=== PATIENT | female | born 1965 | race Hispanic/Latino ===

== ENCOUNTER 2019-08-27 21:56 | Emergency (ER) | payer OTHER ==
--- NOTE | 2019-08-27 22:35 | Emergency Department Report ---
ED General Adult HPI - General Chief complaint: Weakness Stated complaint: GENERAL WEAKNESS Time Seen by Provider: 08/27/19 22:20 Source: patient, family, EMS, RN notes reviewed ( EMS documentation not available at time of chart dictation ) Mode of arrival: Stretcher Limitations: Altered Mental Status, Physical Limitation - History of Present Illness Initial comments: This is a 54-year-old female. This patient is not known to this provider previously. Majority of history obtained by speaking to [facility] physician, Dr. Cheli Hurst. 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 Reportedly, patient was recently found to have a left lower lobe lung nodule, 0.7 x 0.6 cm on PET scan 07/20/2019. Patient recently evaluated at [facility], and had a fluoroscopically guided wedge resection via bronchoscopy in the left hemithorax. Patient also had left-sided chest tubes placed, and was known to have an impressive left- sided subcutaneous emphysema. She was discharged. Today, she presents with her family for weakness and altered mental status. Her last known well time was approximately 10:00 PM yesterday. Family reports that at the patient's baseline, she is able to ambulate, and maintain most of her activities of daily living. There is no trauma that they're aware of, no vomiting, no fevers or chills. In the emergency room, the patient is awake, but altered, follows commands, and indicates that she is not having any physical pain. -: hour(s) Consistency: other Improves with: other Worsens with: other Associated Symptoms: other - Related Data Allergies Allergy/AdvReac Type Severity Reaction Status Date / Time No Known Allergies Allergy Unverified 08/27/19 22:42 ED Review of Systems ROS: Stated complaint: GENERAL WEAKNESS Other details as noted in HPI Comment: Unobtainable due to pts medical conditions (ros from family) Constitutional: malaise Neurological: weakness, confusion ED Physical Exam - General Limitations: Altered Mental Status, Physical Limitation General appearance: other (patient initially listless but arousable.) - Head Head exam: Present: atraumatic, normocephalic - Eye Eye exam: Present: normal appearance, PERRL - ENT ENT exam: Present: mucous membranes moist, normal external ear exam, other (evidence of mandibular reconstruction noted. There is a tracheostomy stoma noted, with so purulent mucus noted) - Neck Neck exam: Present: normal inspection, full ROM. Absent: tenderness, meningismus - Respiratory Respiratory exam: Present: respiratory distress, chest wall tenderness, decreased breath sounds, other (left-sided hemithorax crepitus is noted. Left-sided chest wall ecchymosis noted. Dockworker by nurse Gillian Celaya) - Cardiovascular Cardiovascular Exam: Present: normal rhythm, tachycardia, normal heart sounds. Absent: systolic murmur, diastolic murmur, rubs, gallop - GI/Abdominal GI/Abdominal exam: Present: soft, other (there is a feeding tube noted.). Absent: distended, tenderness, guarding, rebound, rigid, pulsatile mass - Extremities Exam Extremities exam: Present: normal inspection, full ROM, other (2+ pulses noted i n the bilateral upper, lower extremities. There is no long bone tenderness. Musculoskeletal compartments are soft. The pelvis is stable.). Absent: pedal edema, joint swelling, calf tenderness - Back Exam Back exam: Present: normal inspection. Absent: tenderness, CVA tenderness (R), CVA tenderness (L), paraspinal tenderness, vertebral tenderness - Neurological Exam Neurological exam: Present: altered (the patient is awake and follows commands. Detailed neurologic examination not completed secondary to altered mental status there is no facial droop. She is moving 4 extremities spontaneously.) - Skin Skin exam: Present: warm, dry, intact, normal color. Absent: rash ED Course Vital Signs 08/27/19 08/27/19 08/27/19 22:17 22:30 22:45 Temperature Pulse Rate 103 H 108 H 100 H Pulse Rate [ Bilateral Throughout] Respiratory 19 21 17 Rate Respiratory Rate [Bilateral Throughout] Blood Pressure 126/58 128/60 O2 Sat by Pulse 83 L 91 Oximetry 08/27/19 08/27/19 08/27/19 23:00 23:02 23:20 Temperature 99.5 F Pulse Rate 98 H 96 H Pulse Rate [ Bilateral Throughout] Respiratory 13 13 Rate Respiratory Rate [Bilateral Throughout] Blood Pressure 128/74 153/74 O2 Sat by Pulse 96 95 Oximetry 08/27/19 08/27/1919 23:30 23:45 23:55 Temperature Pulse Rate 91 H 92 H Pulse Rate [ 96 H Bilateral Throughout] Respiratory 11 L 11 L Rate Respiratory 13 Rate [Bilateral Throughout] Blood Pressure 155/75 135/79 O2 Sat by Pulse 95 94 Oximetry 08/28/19 08/28/19 08/28/19 00:00 00:15 00:30 Temperature Pulse Rate 82 97 H Pulse Rate [ Bilateral Throughout] Respiratory 9 L 15 Rate Respiratory Rate [Bilateral Throughout] Blood Pressure 145/78 155/84 155/84 O2 Sat by Pulse 97 82 L Oximetry 08/28/19 08/28/19 00:45 01:00 Temperature Pulse Rate 102 H 100 H Pulse Rate [ Bilateral Throughout] Respiratory 11 L 13 Rate Respiratory Rate [Bilateral Throughout] Blood Pressure 134/60 155/84 O2 Sat by Pulse 96 87 Oximetry - Reevaluation(s) Reevaluation #1: 08/27/19 23:35 Differential diagnosis, including not limited to: Encephalopathy, hypoxemic versus infectious versus toxic versus metabolic, chronic emphysema, pneumonia, urinary tract infection Assessment and plan: 54-year-old female with complaint of general weakness and altered mental status as per family. Initially, she is saturating at 65% on nasal cannula. Arterial blood gas is obtained while patient is on a nonrebreather, it shows a respiratory acidosis, hypoxemia, with some metabolic compensation. Patient's tracheal stoma was aggressively suctioned by res piratory therapy, approximately 150 mL of cloudy purulent material were suctioned. Noncontrast CT scan of the brain is negative for acute disease. X- ray the chest shows reported chronic findings, we will cover the patient empirically with Zosyn, and arrange for transfer, as we do not have ENT, hem atology oncology, cardiothoracic surgery available for consultation. In addition, given that patient is currently in the [facility] network, she'll need to be transferred back to her original institution for continuity of care, given her medical complexity. Currently, the patient is saturating at 93% on nonrebreather, appears to be more awake, moving 4 extremities, and does not require tracheal tube placement emergently. Discussed plan of care with family, they are amenable to transfer. Reevaluation #2: 08/27/19 23:48 CT scan brain negative for acute disease. Laboratory studies demonstrate renal insufficiency, hyperkalemia, azotemia, uremia. Hyperkalemia cocktail ordered, nursing team is instructed to administer Kayexalate through feeding tube. Patient continues to remain awake and alert, in no acute distress at this time, she is moving 4 extremities. We will discuss with [facility] to arrange transfer. We will update the patient's family. Reevaluation #3: 08/28/19 00:34 d/w Dr Sunshine, ct surgeon at [facility] who will accept the patient but no beds are available in the icu he will talk to the ER doctors in [facility] [place] to attempt to arrange er to er transfer and ct surgery consultation Reevaluation #4: 08/28/19 01:17 Dr Green at [facility] accepted as and er to er transfer ED Medical Decision Making - Lab Data Result diagrams: 08/27/19 23:00 08/27/19 23:00 Vital Signs 08/27/19 08/27/19 08/27/19 22:17 22:30 22:45 Temperature Pulse Rate 103 H 108 H 100 H Respiratory 19 21 17 Rate Blood Pressure 126/58 128/60 O2 Sat by Pulse 83 L 91 Oximetry 08/27/19 08/27/19 23:00 23:02 Temperature 99.5 F Pulse Rate 98 H Respiratory 13 Rate Blood Pressure 128/74 O2 Sat by Pulse 96 Oximetry Lab Results 08/27/19 08/27/19 08/27/19 Range/Units 22:49 22:54 23:00 WBC 7.1 (4.5-11.0) K/mm3 RBC 3.02 L (3.65-5.03) M/mm3 Hgb 8.4 L (10.1-14.3) gm/dl Hct 26.5 L (30.3-42.9) % MCV 88 (79-97) fl MCH 28 (28-32) pg MCHC 32 (30-34) % RDW 15.6 H (13.2-15.2) % Plt Count 285 (140-440) K/mm3 Lymph % (Auto) 3.9 L (13.4-35.0) % Perry % (Auto) 7.1 (0.0-7.3) % Eos % (Auto) 0.8 (0.0-4.3) % Baso % (Auto) 0.1 (0.0-1.8) % Lymph # 0.3 L (1.2-5.4) K/mm3 Perry # 0.5 (0.0-0.8) K/mm3 Eos # 0.1 (0.0-0.4) K/mm3 Baso # 0.0 (0.0-0.1) K/mm3 Seg Neutrophils % 88.1 H (40.0-70.0) % Seg Neutrophils # 6.3 (1.8-7.7) K/mm3 POC ABG pH 7.237 L (7.35-7.45) POC ABG pO2 77 L (80-105) POC ABG HCO3 30.5 (22-26 mml/L) POC ABG Total CO2 33 (23-27mmol/L) POC ABG O2 Sat 92 POC ABG Base Excess 3 ((-2) - (+3)mmol/L) FiO2 100 % POC Glucose 231 H (70-105) - EKG Data -: EKG Interpreted by Al EKG shows normal: sinus rhythm Rate: normal - EKG Data When compared to previous EKG there are: previous EKG unavailable 08/27/19 23:37 There is no prior EKG available for comparison. EKG shows a rate of 95 bpm, normal axis, QTC is 430 ms, there is motion artifact, there is nonspecific ST abnormality, low voltage noted in the lateral leads, the EKG is abnormal, the EKG is not consistent with ST elevation myocardial infarction. - Radiology Data Radiology results: report reviewed, image reviewed Print Report Referring Physician: EMILY MENDEZ Patient Name: NORA ERWIN Date of : 1965 Sex: Female Report Date: 2019-08-27 Report Status: Finalized Findings [facility] [address] [place] [address] XRay Report Signed Patient: NORA ERWIN MR#: [id number] : 1965 Acct:[id number] Age/Sex: 54 / F ADM Date: 08/27/19 Loc: ED Attending Dr: Ordering Physician: EMILY MENDEZ MD Date of Service: 08/27/19 Procedure(s): XR chest 1V ap Accession Number(s): [id number] cc: EMILY MENDEZ MD Fluoro Time In Minutes: CHEST 1 VIEW INDICATION: hypoxia ams s/p procedure. COMPARISON: None. FINDINGS: Support devices: None. Heart: Within normal limits. Lungs/Pleura: Patchy consolidation/volume loss at the bases. Extensive subcutaneous air at the left chest and abdomen. Suspected intra-abdominal air. Additional findings: None. IMPRESSION: 1. Volume loss/patchy consolidation at the bases. It is uncertain if this represents atelectasis or aspiration. 2. Extensive subcutaneous air and suspected intraperitoneal air likely post procedure. Signer Name: Ezekiel Garcia MD Signed: 08/27/2019 11:13 PM Workstation Name: [id number] Transcribed By: ES Dictated By: Ezekiel Garcia MD Electronically Authenticated By: Ezekiel Garcia MD Signed Date/Time: 08/27/192312 DD/ 11 Critical Care Time: Yes Critical care time in (mins) excluding proc time.: 60 Critical care attestation.: If time is entered above; I have spent that time in minutes in the direct care of this critically ill patient, excluding procedure time. ED Disposition Clinical Impression: Respiratory acidosis, Subcutaneous emphysema after procedure, GIOVANA (acute kidney injury), Hyperkalemia Dyspnea Qualifiers: Dyspnea type: other forms of dyspnea Qualified Code(s): R06.09 - Other forms of dyspnea Disposition: DC/[place]-02 [facility] IP Is pt being admited?: No Does the pt Need Aspirin: No Condition: Serious Referrals: PRIMARY CARE, [Primary Care Provider] - 3-5 Days
--- NOTE | 2019-08-27 23:18 | XRay Report ---
CHEST 1 VIEW INDICATION: hypoxia ams s/p procedure. COMPARISON: None. FINDINGS: Support devices: None. Heart: Within normal limits. Lungs/Pleura: Patchy consolidation/volume loss at the bases. Extensive subcutaneous air at the left c hest and abdomen. Suspected intra-abdominal air. Additional findings: None. IMPRESSION: 1. Volume loss/patchy consolidation at the bases. It is uncertain if this represents atelectasis or a spiration. 2. Extensive subcutaneous air and suspected intraperitoneal air likely post procedure. Signer Name: Ezekiel Garcia MD Signed: 08/27/2019 11:13 PM Workstation Name: [id number]
[2019-08-27 23:22] LABS: Basophils % (Auto) 0.1 % (0.0-1.8); Eosinophils # (Auto) 0.1 K/mm3 (0.0-0.4); Eosinophils % (Auto) 0.8 % (0.0-4.3); Hematocrit 26.5 % (30.3-42.9); Hemoglobin 8.4 gm/dl (10.1-14.3); Lymphocytes # (Auto) 0.3 K/mm3 (1.2-5.4); Lymphocytes % (Auto) 3.9 % (13.4-35.0); Mean Corpuscular HGB Conc 32 % (30-34); Mean Corpuscular Volume 88 fl (79-97); Monocytes # (Auto) 0.5 K/mm3 (0.0-0.8); Monocytes % (Auto) 7.1 % (0.0-7.3); Platelet Count 285 K/mm3 (140-440); Red Blood Count 3.02 M/mm3 (3.65-5.03); Red Cell Distribution Width 15.6 % (13.2-15.2)
[2019-08-27] MEDS ORDERED: PIPERACILLIN/TAZOBACTAM 3.375 3.375 GM/50 ML BAG IV ONE (23:28)
[2019-08-27 23:30] LABS: Amorphous Crystals,Urine Few; Bacteria,Urine 1+ /HPF (Negative); Bilirubin,Urine NEG (Negative); Blood,Urine NEG (Negative); Color,Urine Amber (Yellow); Mucus,Urine FEW /HPF
[2019-08-27 23:33] LABS: INR 1.48 (0.87-1.13)
[2019-08-27 23:34] LABS: Partial Thromboplastin Time 31.4 Sec. (24.2-36.6)
[2019-08-27 23:41] LABS: Albumin 3.4 g/dL (3.9-5)
--- NOTE | 2019-08-27 23:45 | Cat Scan Report ---
CT head/brain wo con INDICATION: Altered Mental Status. TECHNIQUE: All CT scans at this location are performed using the following dose modulation technique: Automated exposure control. CONTRAST: None. COMPARISON: None available. FINDINGS: The ventricular system is appropriate in size and configuration without midline shift. Nega tive for mass, stroke or hemorrhage. The bones and image portions the paranasal sinuses are clear. IMPRESSION: Negative CT brain without contrast. Signer Name: Ezekiel Garcia MD Signed: 08/27/2019 11:41 PM Workstation Name: [id number]
[2019-08-27] MEDS ORDERED: DEXTROSE 50% IN WATER (25GM) 50 ML SYRINGE IV ONE (23:46)
[2019-08-27] MEDS ORDERED: SODIUM CHLORIDE 0.9% 1000 ML 1,000 ML IV ONE (23:46)
[2019-08-27] MEDS ORDERED: ALBUTEROL 2.5 MG/3 ML NEBU IH ONE (23:46)
[2019-08-27] MEDS ORDERED: SODIUM BICARB 8.4% 50 MEQ/50 ML SYRINGE IV ONE (23:46)
[2019-08-27] MEDS ORDERED: SODIUM POLYSTYRENE 15 GM/60 ML ORAL LIQD PO ONE (23:46)
[2019-08-27] MEDS ORDERED: INSULIN REGULAR, HUMAN 100 UNITS/1 ML IV ONE (23:46)
[2019-08-27] MEDS ORDERED: DEXTROSE 50% IN WATER (25GM) 50 ML SYRINGE IV PRN (23:46)
[2019-08-28] MEDS ORDERED: SODIUM CHLORIDE 0.9% 500 ML 500 ML IV ONE (00:10)
[2019-08-28 01:05] VITALS: BP 155/84
== END 2019-08-28 02:04 | disposition short-term general hospital (02) ==
LOC: ED 21:56
DX: E87.2 Acidosis (principal); T81.82XA Emphysema (subcutaneous) resulting from a procedure, initial encounter; N17.9 Acute kidney failure, unspecified; X58.XXXA Exposure to other specified factors, initial encounter; Y93.89 Activity, other specified; Y92.89 Other specified places as the place of occurrence of the external cause; Y99.8 Other external cause status
CPT/HCPCS: 36415; 70450; 71045; 80053; 81001; 82140; 82550; 82803; 82962; 83735; 84443; 85025; 85610; 85730; 86850; 86900; 86901; 87086; 93005; 93010; 94644; 96365; 96375; 99291; J2543; J7030; J7040; 80320; G0480; J1815